=== PATIENT | female | born 1985 | race American Indian/Alaskan Native ===

== ENCOUNTER 2021-05-29 13:01 | Emergency (ER) | payer MEDICAID ==
[2021-05-29 13:26] VITALS: BP 124/88
--- NOTE | 2021-05-29 13:40 | Emergency Department Report ---
- General Chief complaint: Skin/Abscess/Foreign Body Stated complaint: PAIN Time Seen by Provider: 05/29/21 13:19 Source: patient Mode of arrival: Ambulatory Limitations: No Limitations - History of Present Illness Initial comments: 36-year-old female with a past medical history of diabetes presents to the ER today with complaints of her nonpainful pruritic rash to her left breast. Patient states that around May 03, she went to [facility] emergency room because she had a tender painful area to her right breast. She was seen by the provider and was told that it could either be an abscess or cyst. She was placed on oral antibiotics, she thinks that it was cephalexin, and was told to follow-up with [facility] [facility]. Patient states that she took all of the Keflex, and while taking the Keflex the area ruptured and started to drain lots of lots of pus. She states now she has this pruritic, nonpainful, flaky rash to her left breast and underneath the breast. She states that the swelling to the left breast has much improved. She reports no nipple discharge or any further drainage. She does have an open sore to the breast from where the area drained. She states that she is currently on the waiting list at [facility] to be seen by [facility]. Denies any fever or chills. MD complaint: rash, abscess/boil -: days(s) - Related Data Home Medications Medication Instructions Recorded Confirmed Last Taken Insulin NPH Hum/Reg Insulin Hm 16 unit SQ QPM 01/18/15 01/27/15 01/17/15 [HumuLIN 70-30 Vial] Insulin NPH Hum/Reg Insulin Hm 48 units SQ QAM 01/18/15 01/27/15 01/18/15 [HumuLIN 70-30 Vial] Pnv,Calcium 72/Iron/Folic Acid 1 tab PO DAILY 01/18/15 01/27/15 01/18/15 [Pnv Plus Multivit Tab] Previous Rx's Medication Instructions Recorded Last Taken Type Ibuprofen [Motrin 800 MG tab] 800 mg PO Q8H PRN #30 tablet 01/29/15 Unknown Rx Insulin NPH Hum/Reg Insulin Hm 16 unit SQ QPM #1 vial 01/29/15 Unknown Rx [HumuLIN 70-30 Vial] Insulin NPH Hum/Reg Insulin Hm 48 unit SQ QAM #7 ml 01/29/15 Unknown Rx [HumuLIN 70-30 Vial] oxyCODONE /ACETAMINOPHEN [Percocet 2 tab PO Q4H PRN #30 tablet 01/29/15 Unknown Rx 5/325 mg] Acyclovir [Zovirax Tab] 400 mg PO Q8H #21 tab 05/21/15 Unknown Rx Ciprofloxacin HCl [Ciprofloxacin 500 mg PO Q12HR #10 tab 05/21/15 Unknown Rx TAB] Oxycodone HCl/Acetaminophen 1 each PO Q4-6H PRN #20 tablet 05/21/15 Unknown Rx [Percocet 10/325 mg] Fluconazole [Diflucan TAB] 100 mg PO QDAY #7 tablet 05/29/21 Unknown Rx Nystatin Oint [Mycostatin Oint] 1 applicatio TP TID #60 gm 05/29/21 Unknown Rx cephALEXin [Keflex] 500 mg PO Q12HR #14 cap 05/29/21 Unknown Rx Allergies Allergy/AdvReac Type Severity Reaction Status Date / Time No Known Allergies Allergy Unverified 01/18/15 17:11 Abscess Boil HPI - HPI Chief Complaint: Skin/Abscess/Foreign Body Stated Complaint: PAIN Time Seen by Provider: 05/29/21 13:19 Home Medications: Home Medications Medication Instructions Recorded Confirmed Last Taken Insulin NPH Hum/Reg Insulin Hm 16 unit SQ QPM 01/18/15 01/27/15 01/17/15 [HumuLIN 70-30 Vial] Insulin NPH Hum/Reg Insulin Hm 48 units SQ QAM 01/18/15 01/27/15 01/18/15 [HumuLIN 70-30 Vial] Pnv,Calcium 72/Iron/Folic Acid 1 tab PO DAILY 01/18/15 01/27/15 01/18/15 [Pnv Plus Multivit Tab] Previous Rx's Medication Instructions Recorded Last Taken Type Ibuprofen [Motrin 800 MG tab] 800 mg PO Q8H PRN #30 tablet 01/29/15 Unknown Rx Insulin NPH Hum/Reg Insulin Hm 16 unit SQ QPM #1 vial 01/29/15 Unknown Rx [HumuLIN 70-30 Vial] Insulin NPH Hum/Reg Insulin Hm 48 unit SQ QAM #7 ml 01/29/15 Unknown Rx [HumuLIN 70-30 Vial] oxyCODONE /ACETAMINOPHEN [Percocet 2 tab PO Q4H PRN #30 tablet 01/29/15 Unknown Rx 5/325 mg] Acyclovir [Zovirax Tab] 400 mg PO Q8H #21 tab 05/21/15 Unknown Rx Ciprofloxacin HCl [Ciprofloxacin 500 mg PO Q12HR #10 tab 05/21/15 Unknown Rx TAB] Oxycodone HCl/Acetaminophen 1 each PO Q4-6H PRN #20 tablet 05/21/15 Unknown Rx [Percocet 10/325 mg] Fluconazole [Diflucan TAB] 100 mg PO QDAY #7 tablet 05/29/21 Unknown Rx Nystatin Oint [Mycostatin Oint] 1 applicatio TP TID #60 gm 05/29/21 Unknown Rx cephALEXin [Keflex] 500 mg PO Q12HR #14 cap 05/29/21 Unknown Rx Allergies/Adverse Reactions: Allergies Allergy/AdvReac Type Severity Reaction Status Date / Time No Known Allergies Allergy Unverified 01/18/15 17:11 ED Review of Systems ROS: Stated complaint: PAIN Other details as noted in HPI Comment: All other systems reviewed and negative Constitutional: denies: chills, fever Eyes: denies: eye pain, eye discharge, vision change ENT: denies: ear pain, throat pain, dental pain, hearing loss, epistaxis, congestion Respiratory: denies: cough, shortness of breath, SOB with exertion, SOB at rest, wheezing Cardiovascular: denies: chest pain, palpitations Gastrointestinal: denies: abdominal pain, nausea, vomiting, diarrhea, constipation, hematemesis, melena, hematochezia Genitourinary: denies: abnormal menses, dyspareunia Musculoskeletal: denies: back pain, joint swelling, arthralgia, myalgia Skin: rash, lesions. denies: change in color, pruritus Neurological: denies: headache, weakness, numbness, paresthesias, confusion, abnormal gait, vertigo Psychiatric: denies: anxiety, depression, auditory hallucinations, visual hallucinations, homicidal thoughts, suicidal thoughts ED Past Medical Hx - Past Medical History Hx Hypertension: No Hx Congestive Heart Failure: No Hx Diabetes: Yes Hx Deep Vein Thrombosis: No Hx Renal Disease: No Hx Sickle Cell Disease: No Hx Seizures: No Hx Asthma: No Hx COPD: No Hx HIV: No - Social History Smoking Status: Never Smoker Substance Use Type: None - Medications Home Medications: Home Medications Medication Instructions Recorded Confirmed Last Taken Type Insulin NPH Hum/Reg Insulin Hm 16 unit SQ QPM 01/18/15 01/27/15 01/17/15 History [HumuLIN 70-30 Vial] Insulin NPH Hum/Reg Insulin Hm 48 units SQ QAM 01/18/15 01/27/15 01/18/15 History [HumuLIN 70-30 Vial] Pnv,Calcium 72/Iron/Folic Acid 1 tab PO DAILY 01/18/15 01/27/15 01/18/15 History [Pnv Plus Multivit Tab] Ibuprofen [Motrin 800 MG tab] 800 mg PO Q8H PRN #30 tablet 01/29/15 Unknown Rx Insulin NPH Hum/Reg Insulin Hm 16 unit SQ QPM #1 vial 01/29/15 Unknown Rx [HumuLIN 70-30 Vial] Insulin NPH Hum/Reg Insulin Hm 48 unit SQ QAM #7 ml 01/29/15 Unknown Rx [HumuLIN 70-30 Vial] oxyCODONE /ACETAMINOPHEN [Percocet 2 tab PO Q4H PRN #30 tablet 01/29/15 Unknown Rx 5/325 mg] Acyclovir [Zovirax Tab] 400 mg PO Q8H #21 tab 05/21/15 Unknown Rx Ciprofloxacin HCl [Ciprofloxacin 500 mg PO Q12HR #10 tab 05/21/15 Unknown Rx TAB] Oxycodone HCl/Acetaminophen 1 each PO Q4-6H PRN #20 tablet 05/21/15 Unknown Rx [Percocet 10/325 mg] Fluconazole [Diflucan TAB] 100 mg PO QDAY #7 tablet 05/29/21 Unknown Rx Nystatin Oint [Mycostatin Oint] 1 applicatio TP TID #60 gm 05/29/21 Unknown Rx cephALEXin [Keflex] 500 mg PO Q12HR #14 cap 05/29/21 Unknown Rx ED Physical Exam - General Limitations: No Limitations General appearance: alert, in no apparent distress - Head Head exam: Present: atraumatic, normocephalic, normal inspection - Eye Eye exam: Present: normal appearance, PERRL, EOMI Pupils: Present: normal accommodation - Respiratory Respiratory exam: Present: normal lung sounds bilaterally. Absent: respiratory distress, wheezes, rales, rhonchi, stridor - Cardiovascular Cardiovascular Exam: Present: regular rate, normal rhythm, normal heart sounds - Neurological Exam Neurological exam: Present: alert, oriented X3, CN II-XII intact, normal gait - Psychiatric Psychiatric exam: Present: normal affect, normal mood - Skin Skin exam: Present: intact - Other Other exam information: Erythematous, maculopapular, rash with well-circumscribed borders noted underneath the left breast, and also to the left breast including the areola and the nipple with some flaking skin. She does have a shallow ulcerated wound to the lateral aspect of the nipple around 1:00 of the areola with some mild surrounding induration. No fluctuance noted. No drainage noted. There is no tenderness to palpation to the breast nor to the nipple. No dimpling noted. The left breast is mildly swollen compared to the right. ED Course Vital Signs 05/29/21 13:25 Temperature 98.1 F Pulse Rate 83 Respiratory 18 Rate Blood Pressure 124/88 [Left] O2 Sat by Pulse 100 Oximetry ED Medical Decision Making - Medical Decision Making 36-year-old female with a past medical history of diabetes presents to the ER today with complaints of her nonpainful pruritic rash to her left breast. Patient states that around May 03, she went to [facility] emergency room because she had a tender painful area to her right breast. She was seen by the provider and was told that it could either be an abscess or cyst. She was placed on oral antibiotics, she thinks that it was cephalexin, and was told to follow-up with [facility] [facility]. Patient states that she took all of the Keflex, and while taking the Keflex the area ruptured and start ed to drain lots of lots of pus. She states now she has this pruritic, nonpainful, flaky rash to her left breast and underneath the breast. She states that the swelling to the left breast has much improved. She reports no nipple discharge or any further drainage. She does have an open sore to the breast from where the area drained. She states that she is currently on the waiting list at [place] to be seen by [facility]. Denies any fever or chills. Physical exam is concerning for skin yeast infection. Patient does have a small to medium size open wound from what appears to be where the abscess ruptured. No fluctuance noted. No obvious cellulitis. No dimpling noted. No apparent discharge coming from the breast. I suspect that patient developed the yeast infection probably after taking the antibiotics. She is also diabetic and her blood sugar today is 252 but she admits she has not taken her insulin today. Patient states that typically her sugars improve after she takes insulin. She is afebrile, she is not toxic and she is not ill-appearing. Her vital signs are stable. Patient will be given medication to treat the yeast infection, as well as some topical yeast infection cream but should be also given oral antibiotics to cover for any possible residual bacterial infection. Patient informed that she really should follow-up with [facility] for further breast examination including mammogram and she will be given referral to one of our local [facility]. Patient expressed understanding of all instructions and agree with plan. Patient was stable at time of discharge Critical care attestation.: If time is entered above; I have spent that time in minutes in the direct care of this critically ill patient, excluding procedure time. ED Disposition Clinical Impression: Skin candidiasis, Mastitis Disposition: 01 HOME / SELF CARE / HOMELESS Is pt being admited?: No Does the pt Need Aspirin: No Condition: Stable Instructions: Mastitis, [id number], Skin Yeast Infection Additional Instructions: I recommend that you take the Diflucan as prescribed to completion. I also recommend that you take the Keflex as prescribed to completion. Use the nystatin cream as discussed. Keep the wound clean daily with soap and water. Do not use alcohol or peroxide. I do recommend that you follow-up with the [facility] listed on discharge instructions for further breast evaluation including a mammogram. If you do get an appointment to see the [facility] at [place], I still recommend that you keep it. Return to the ER if your symptoms changes or worsens in any way. Prescriptions: Fluconazole [Diflucan TAB] 100 mg PO QDAY #7 tablet cephALEXin [Keflex] 500 mg PO Q12HR #14 cap Nystatin Oint [Mycostatin Oint] 1 applicatio TP TID #60 gm Referrals: [facility] [Provider Group] - 3-5 Days Time of Disposition: 13:45
== END 2021-05-29 23:00 | disposition home or self-care (01) ==
LOC: ED 13:01
DX: B37.2 Candidiasis of skin and nail (principal); N61.0 Mastitis without abscess; E11.9 Type 2 diabetes mellitus without complications; Z79.4 Long term (current) use of insulin; Z79.899 Other long term (current) drug therapy
CPT/HCPCS: 82962; 99282